=== PATIENT | male | born 1980 | race African-American/Black ===

== ENCOUNTER 2018-04-10 12:26 | Emergency (ER) | payer MEDICARE, MEDICAID ==
[~2018-04-10] VITALS: Ht 170.2 cm; Wt 79.5 kg
[~2018-04-10 12:26] MED LIST: AMOXICILLIN500 MG PO; LORTAB 5/3255 MG PO
[2018-04-10] MEDS ORDERED: TORADOL PO (13:37)
[2018-04-10] MEDS ORDERED: FLEXERIL PO (13:37)
[2018-04-10 13:44] VITALS: BP 142/93
== END 2018-04-10 13:50 | disposition home or self-care (01) ==
LOC: ED 12:26
DX: S29.012A Strain of muscle and tendon of back wall of thorax, initial encounter (principal); X58.XXXA Exposure to other specified factors, initial encounter